=== PATIENT | female | born 1940 | race Caucasian/White ===

== ENCOUNTER 2020-04-24 14:27 | Emergency (ER) | payer MEDICARE ==
[~2020-04-24] VITALS: Ht 170.2 cm; Wt 114.3 kg
--- NOTE | 2020-04-24 14:31 | NUR ---
Emily (daughter in law) [phone] call for information
--- NOTE | 2020-04-24 14:35 | NUR ---
BIB RA FROM HOME,C/O PAIN IN HER BUTTOCKS, S/P GLF. PATIENT ABLE TO MOVE HER LOWER AND UPPER EXTREMITIES. NEEDS ATTENDED.
[2020-04-24] MEDS ORDERED: KETOROLAC TROMETHAMINE 15 MG/ML VIAL ONE (15:10)
[2020-04-24] MEDS ORDERED: ACETAMINOPHEN ES 500 MG TABLET ONE (15:10)
[2020-04-24] MEDS ORDERED: ACETAMINOPHEN 325 MG TABLET PO ONE (15:30)
[2020-04-24] MEDS ORDERED: KETOROLAC TROMETHAMINE INJ 30 MG/ML VIAL IV ONE (15:30)
--- NOTE | 2020-04-24 18:28 | NUR ---
IV removed. Catheter intact and site benign. Pressure and 4x4 applied to site. No bleeding noted. Patient discharged to home in stable condition. Written and verbal after care instructions given. Patient verbalizes understanding of instruction. Picked up by son Cole.
[2020-04-24 18:29] VITALS: BP 120/68
== END 2020-04-24 18:30 | disposition home or self-care (01) ==
LOC: ER 14:33
DX: S30.0XXA Contusion of lower back and pelvis, initial encounter (principal); I10 Essential (primary) hypertension; E11.9 Type 2 diabetes mellitus without complications; W18.39XA Other fall on same level, initial encounter; Y93.89 Activity, other specified; Y92.89 Other specified places as the place of occurrence of the external cause; Y99.8 Other external cause status
CPT/HCPCS: 72190; 96374; 99283; J1885

== ENCOUNTER 2022-04-28 18:45 | Inpatient (IN) | payer OTHER ==
[~2022-04-28] VITALS: Ht 175.3 cm; Wt 77.6 kg
--- NOTE | 2022-04-28 19:57 | NUR ---
BIBRA 860 FROM HOME [place] WITH C/O GENERAL WEAKNESS PAST FEW DAYS 3L O2 AT HOME. PT A/OX3. CONNECTED PT TO POX AND MONITOR. SAFETY MEASURES IN PLACE.
--- NOTE | 2022-04-28 20:20 | NUR ---
DTR IN LAW [place] [phone]
--- NOTE | 2022-04-28 20:28 | NUR ---
BLOOD WORK COLLECTED SENT TO LAB,
[2022-04-28 20:47] LABS: BASOPHILS % (AUTO) 0.2 % (0.0-2.0); EOSINOPHILS % (AUTO) 0.1 % (0.0-6.0); HEMATOCRIT 47 % (33-45); HEMOGLOBIN 15.4 g/dL (11.5-14.8); LYMPHOCYTES % (AUTO) 5.6 % (20.0-44.0); MEAN CORPUSCULAR HGB CONC 33 g/dl (31.0-36.0); MEAN CORPUSCULAR VOLUME 96 fL (82-100); MONOCYTES # (AUTO) 1.2 K/uL (0.1-1.30); MONOCYTES % (AUTO) 7.2 % (2.0-12.0); NEUTROPHILS # (AUTO) 14.8 K/uL (1.8-8.9); NEUTROPHILS % (AUTO) 86.9 % (43.0-81.0); PLATELET COUNT (AUTO) 170 K/uL (150-450); RED BLOOD CELL COUNT(AUTO) 4.95 MIL/uL (4.0-5.2)
[2022-04-28 21:25] LABS: ALANINE AMINOTRANSFERASE 16 U/L (12-78); ALBUMIN 2.6 g/dL (3.4-5.0); ALKALINE PHOSPHATASE 112 U/L (46-116); ASPARTATE AMINOTRANSFERASE 30 U/L (15-37); BILIRUBIN,DIRECT 0.2 mg/dL (0.0-0.2); BILIRUBIN,TOTAL 1.4 mg/dL (0.2-1.0); CALCIUM, SERUM 9.4 mg/dL (8.5-10.1); CARBON DIOXIDE 35 mmol/L (21-32); CHLORIDE 92 mmol/L (98-107); CREATININE 1.9 mg/dL (0.6-1.3); GLUCOSE 140 mg/dL (74-106); POTASSIUM 5.5 mmol/L (3.5-5.1); SODIUM SERUM 134 mmol/L (136-145); UREA NITROGEN, BLOOD 41 mg/dL (7-18)
--- NOTE | 2022-04-28 21:26 | NUR ---
PATIENT AT CT
[2022-04-28] MEDS ORDERED: HYDROCODONE/APAP 5/325MG TABLET PO ONE (21:30)
[2022-04-28] MEDS ORDERED: HYDROCODONE/APAP 5/325MG TABLET ONE (21:32)
--- NOTE | 2022-04-28 21:43 | NUR ---
URINE COLLECTED AND SENT TO LAB
--- NOTE | 2022-04-28 21:45 | NUR ---
COVID ANTIGEN AND MRSA SWAB COLLECTED. PT BELONGINGS LIST DONE
[2022-04-28] MEDS ORDERED: IV NS 0.9% 1,000 ML BAG IV ONE (22:00)
[2022-04-28 22:05] LABS: BILIRUBIN,URINE SMALL (NEGATIVE); COLOR,URINE YELLOW (YELLOW); LEUKOCYTE ESTERASE ,URINE MODERATE (NEGATIVE); NITRITE, URINE POSITIVE (NEGATIVE); PH,URINE 6.5 (5.0-8.0); PROTEIN,URINE 100 mg/dl (NEGATIVE); UGLUCOSE NEGATIVE (NEGATIVE)
--- NOTE | 2022-04-28 22:07 | NUR ---
Tammy berkowitz in [facility] - 04/28/22 at 2210 by [facility] PT TAKEN TO CT VIA KANDICE
--- NOTE | 2022-04-28 22:07 | NUR ---
PT REFUSED TO GET HEAD CT; DR. SWARTZ AWARE
[2022-04-28] MEDS ORDERED: CEFTRIAXONE 1GM BAG (ER ONLY) 50 ML IV ONE (22:15)
[2022-04-28 22:30] LABS: BACTERIA,URINE Many /HPF (None Seen); SQUAMOUS EPITHELIAL CELL,UR Many /HPF (None Seen); WBC,URINE 81-100 /HPF (0-3)
[2022-04-28] MEDS ORDERED: CEFTRIAXONE 1GM BAG (ER ONLY) 1 GM/50 ML PIGGYBACK IV ONE (22:30)
--- NOTE | 2022-04-28 22:59 | NUR ---
NOTIDFIED DTR IN LAW [place] [phone] THAT PT WILL ADMITTED
--- NOTE | 2022-04-28 23:00 | NUR ---
[facility] DTR IN LAW [phone] WILL BRING HOME MED LIST TOMORROW MORNING.
--- NOTE | 2022-04-28 23:21 | NUR ---
BRIAN PINK DNP AT PT'S BEDSIDE
--- NOTE | 2022-04-28 23:44 | NUR ---
REPORT GIVEN TO ISAURO Rosado RN FOR QUAN
[2022-04-28] MEDS: MORPHINE SULFATE INJ 2 MG/ML DISP.SYRIN IV PRN (23:55)
--- NOTE | 2022-04-28 23:55 | NUR ---
PRN PAIN MEDS MORPHINE 2MG ADMINISTERED ORDERED. 04/15 SACRAL PAIN. VSS
[2022-04-29] MEDS ORDERED: HYDROCODONE/APAP 5/325MG TABLET PO PRN
[2022-04-29] MEDS ORDERED: MAG HYDROX/AL HYDROX/SIMETH 30 ML UDC PO PRN
[2022-04-29] MEDS ORDERED: INSULIN REGULAR, HUMAN 100 UNIT/ML 3 ML VIAL SQ PRN
[2022-04-29] MEDS ORDERED: Z GUARD REMEDY 4 OZ OINT TP PRN
[2022-04-29] MEDS ORDERED: DEXTROSE 50%-WATER 50 ML DISP.SYRIN IV PRN
[2022-04-29] MEDS ORDERED: ONDANSETRON HCL/PF 4 MG/2 ML VIAL IVP PRN
[2022-04-29] MEDS ORDERED: TEMAZEPAM 15 MG CAPSULE PO PRN
[2022-04-29] MEDS ORDERED: ACETAMINOPHEN 325 MG TABLET PO PRN
[2022-04-29] MEDS ORDERED: MAGNESIUM HYDROXIDE 30 ML UDC PO PRN
--- NOTE | 2022-04-29 00:06 | NUR ---
PT TRANSFERRED TO 3 VIA HOSPITAL PROTOCOL. VSS. ALL BELONGINGS WITH PT.
[2022-04-29 00:30] VITALS: BP 111/57
--- NOTE | 2022-04-29 00:30 | NUR ---
MS LAW OFFICE ASSISTANT NOTES PATIENT ARRIVED VIA GURNEY FROM ER; AWAKE, ALERT AND ORIENTED X2-3. ABLE TO MAKE NEEDS KNOWN. ON OXYGEN INHALATION @ 3LPM VIA NASAL CANNULA; TOLERATING WELL. NO S/SX OF RESPIRATORY DISTRESS. WITH IV ACCESS ON RIGHT FOREARM 20G; PATENT AND INTACT INFUSING WITH NS 1L REGULATED @ 75ML/HR. VITAL SIGNS TAKEN AND RECORDED FOLLOWS: T-98.2, NC-79, RR-18, BP-111/57, O2 SAT 99%; AFEBRILE. SKIN ASSESSMENT DONE; WARM TO TOUCH. PICTURES TAKEN AND PLACED TO CHART. ORIENTED TO STAFF, ROOM AND UNIT. ALL PERSONAL BELONGINGS CHECKED AND ACCOUNTED FOR. FALL AND SAFETY MEASURES IMPLEMENTED: CALL LIGHT AND TABLE WITHIN EASY REACH, SIDE RAILS UP X2, BED IN LOWEST LOCKED POSITION. WILL CONTINUE TO MONITOR
[2022-04-29] MEDS: IV NS 0.9% 1,000 ML IV PRN ×2 (01:22→15:31)
[2022-04-29] MEDS: MORPHINE SULFATE INJ 2 MG/ML DISP.SYRIN IV PRN (04:07)
--- NOTE | 2022-04-29 04:07 | NUR ---
MS RN NOTE PATIENT C/O SACRAL PAIN 8/; PRN MORPHINE 2MG GIVEN IVP PER MD'S ORDER. WILL CONTINUE TO REASSESS AND MONITOR PT.
--- NOTE | 2022-04-29 06:00 | NUR ---
MS RN NOTE BS CHECKED WITH RESULT OF 122 MG/DL; NO INSULIN COVERAGE GIVEN.
[2022-04-29] MEDS: BLOOD SUGAR DIAGNOSTIC 1 EACH STRIP IN SCH ×4 (06:17→21:21)
--- NOTE | 2022-04-29 07:05 | NUR ---
MS RN CLOSING NOTES PATIENT REMAINS IN BED; AWAKE, A/O X2. ON O2 INHALATION @ 3LPM VIA NASAL CANNULA; TOLERATING WELL. NO S/SX OF RESPIRATORY DISTRESS. NO C/O PAIN OR DISCOMFORT AT THIS TIME. WITH IV ACCESS ON RIGHT FOREARM 20G; PATENT AND INTACT INFUSING WITH NS 1L REGULATED @ 75 ML/HR; FLUSHES WELL. NO S/SX OF INFILTRATION NOTED. ALL NEEDS MET AT THIS TIME. FALL AND SAFETY MEASURES MAINTAINED: BED IN LOWEST LOCKED POSITION, SIDE RAILS UP X2, CALL LIGHT AND TABLE WITHIN REACH. ENDORSED TO MORNING SHIFT FOR CONTINUITY OF CARE
--- NOTE | 2022-04-29 07:20 | NUR ---
MS RN OPENING NOTES RECEIVED PATIENT IN BED RESTING IN BED, RESPONDS TO VERBAL AND PHYSICAL STIMULI. A/O X2. STABLE ON 3L OF O2 VIA NC. NO S/SX OF RESPIRATORY DISTRESS NOTED. NO C/O PAIN OR DISCOMFORT AT THIS TIME. IV ACCESS RIGHT FOREARM G#20 PATENT AND INTACT INFUSING NS @ 75ML/HR. NO S/SX OF INFILTRATION NOTED. SAFETY PRECAUTIONS IN PLACE. WILL CONTINUE TO MONITOR
[2022-04-29 07:29] LABS: BASOPHILS % (AUTO) 0.1 % (0.0-2.0); EOSINOPHILS % (AUTO) 0.3 % (0.0-6.0); HEMATOCRIT 40 % (33-45); HEMOGLOBIN 13.5 g/dL (11.5-14.8); LYMPHOCYTES # (AUTO) 1.2 K/uL (0.8-4.8); LYMPHOCYTES % (AUTO) 9.4 % (20.0-44.0); MEAN CORPUSCULAR HGB CONC 33 g/dl (31.0-36.0); MEAN CORPUSCULAR VOLUME 96 fL (82-100); MONOCYTES # (AUTO) 0.9 K/uL (0.1-1.30); MONOCYTES % (AUTO) 7.5 % (2.0-12.0); NEUTROPHILS # (AUTO) 10.3 K/uL (1.8-8.9); NEUTROPHILS % (AUTO) 82.7 % (43.0-81.0); PLATELET COUNT (AUTO) 144 K/uL (150-450); RED BLOOD CELL COUNT(AUTO) 4.21 MIL/uL (4.0-5.2); WHITE BLOOD COUNT (AUTO) 12.5 K/uL (4.3-11.0)
[2022-04-29 08:00] VITALS: BP 110/46
[2022-04-29] MEDS: PANTOPRAZOLE 40 MG TABLET.DR PO SCH (08:12)
[2022-04-29 08:36] LABS: CALCIUM, SERUM 8.5 mg/dL (8.5-10.1); CARBON DIOXIDE 33 mmol/L (21-32); CHLORIDE 97 mmol/L (98-107); CREATININE 1.7 mg/dL (0.6-1.3); GLUCOSE 114 mg/dL (74-106); MAGNESIUM 1.8 mg/dL (1.8-2.4); POTASSIUM 4.1 mmol/L (3.5-5.1); SODIUM SERUM 137 mmol/L (136-145); UREA NITROGEN, BLOOD 42 mg/dL (7-18)
[2022-04-29 08:53] LABS: THYROID STIMULATING HORMONE 1.725 uIU/mL (0.358-3.74)
[2022-04-29] MEDS ORDERED: FLUT12AE7 INH (09:42)
[2022-04-29] MEDS ORDERED: LEVO88TA5 PO (09:42)
[2022-04-29] MEDS ORDERED: POTA10TA10 PO (09:42)
[2022-04-29] MEDS ORDERED: MEMA5TAB42 PO (09:42)
[2022-04-29] MEDS ORDERED: BUME0.5T5 PO (09:42)
[2022-04-29] MEDS ORDERED: METF-881 PO (09:42)
[2022-04-29] MEDS ORDERED: SIMV-49 PO (09:42)
[2022-04-29] MEDS ORDERED: FLUT1BLS13 INH (09:42)
--- NOTE | 2022-04-29 09:43 | NUR ---
[phone].
[2022-04-29 16:02] VITALS: BP 115/55
--- NOTE | 2022-04-29 19:25 | NUR ---
RN OPENING NOTE PATIENT IN BED, EYES CLOSED. EASILY AWAKENED. A/O X 3 AT THIS TIME. PATIENT ON 3LPM AT THIS TIME AT 95% O2 SATURATION. PER JAN MALLOY, SHE SPOKE WITH THE DTR AND STATES SHE ALSO HAS 3LPM CONTINUOUS AT HOME BUT WOULD LIKE FOR PATIENT TO BE WEANED OFF IF SHE DOESN'T NEED IT. PATIENT HAS A RFA 20 G WITH NS AT 75 ML/HR ONGOING. SAFETY MEASURES IN PLACE: BED LOCKED AND IN LOWEST POSITION, CALL LIGHT WITHIN REACH, SIDE RAILS UP. WILL MONITOR PATIENT CLOSELY. Addendum: 04/29/22 at 2138 by BECKY SHETTY RN INCORRECT ORIENTATION- A/O X 2
--- NOTE | 2022-04-29 19:27 | NUR ---
RN NOTES PATIENT STABLE IN BED. NO COMPLAINTS AT THIS TIME. SAFETY PRECAUTIONS IN PLACE. ENDORSED REPORT TO THE GANTRY CRANE OPERATOR NURSE FOR QUAN
[2022-04-29 20:00] VITALS: BP_SYST 134; BP_DIAS 70; BP_DIAS 71
[2022-04-29] MEDS: CEFTRIAXONE 1 G in IV D5W 50 ML IV SCH (21:21)
--- NOTE | 2022-04-29 21:21 | NUR ---
RN NOTE PATIENT'S BS 86 MG/DL, NO COVERAGE GIVEN, PATIENT GIVEN ORANGE JUICE AND FED SOME PUDDING. WILL MONITOR FOR HYPO/HYPERGLYCEMIA.
[2022-04-30] MEDS: MORPHINE SULFATE INJ 2 MG/ML DISP.SYRIN IV PRN (00:43)
--- NOTE | 2022-04-30 00:43 | NUR ---
RN NOTE PATIENT SCREAMING AND CRYING "I HURT, MY LEGS HURT". MORPHINE GIVEN FOR SEVERE PAIN. WILL REASSESS AT A LATER TIME.
[2022-04-30] MEDS: IV NS 0.9% 1,000 ML IV PRN ×2 (04:11→22:17)
--- NOTE | 2022-04-30 06:28 | NUR ---
RN NOTE PATIENT'S BS 80 MG/DL. NO INSULIN COVERAGE GIVEN. PATIENT GIVEN SNACKS TO PREVENT BS FROM DROPPING FURTHER. WILL ASSESS FOR HYPO/HYPERGLYCEMIA.
[2022-04-30] MEDS: BLOOD SUGAR DIAGNOSTIC 1 EACH STRIP IN SCH ×4 (06:34→22:17)
--- NOTE | 2022-04-30 07:03 | NUR ---
RN CLOSING NOTE PATIENT IN BED, EYES CLOSED. EASILY AWAKENED. PATIENT IS CURRENTLY A/O X 1-2, NEEDS FREQUENT REORIENTATION. PATIENT NOTED TO HAVE FREQUENT URINATION/URGE TO URINATE. PENDING URINE CX. PATIENT IS CURRENTLY ON 3LPM, NO SOB NOTED. TOLERATING WELL. PATIENT NOT IN ANY APPARENT DISTRESS. SAFETY MEASURES IMPLEMENTED. ALL NEEDS MET AND ATTENDED. ALL ORDERS CARRIED OUT. WILL ENDORSE TO DAY SHIFT NURSE FOR QUAN.
[2022-04-30 08:00] VITALS: BP 112/47
--- NOTE | 2022-04-30 09:29 | NUR ---
WOUND CARE CONSULT: PT PRESENTS IMMOBILE WITH SACRAL DEEP TISSUE INJURY AND REDNESS/OPEN SKIN TO BILATERAL BREASTFOLDS, PRESENT ON ADMISSION. RECOMMENDATIONS MADE FOR SKIN PROTECTION AND WOUND CARE. DISCUSSED WITH NURSING STAFF. PT IS INCONTINENT. FIRST STEP LOW AIRLOSS MATTRESS IS ON ORDER. MD IN AGREEMENT WITH PLAN OF CARE. Addendum: 04/30/22 at 0930 by BRITTANY GRANADOS WNDNU Amended: Links added.
[2022-04-30] MEDS: PANTOPRAZOLE 40 MG TABLET.DR PO SCH (10:10)
[2022-04-30 11:50] LABS: BASOPHILS % (AUTO) 0.3 % (0.0-2.0); EOSINOPHILS % (AUTO) 3.9 % (0.0-6.0); HEMATOCRIT 41 % (33-45); HEMOGLOBIN 12.8 g/dL (11.5-14.8); LYMPHOCYTES # (AUTO) 1.2 K/uL (0.8-4.8); LYMPHOCYTES % (AUTO) 13.7 % (20.0-44.0); MEAN CORPUSCULAR HGB CONC 32 g/dl (31.0-36.0); MEAN CORPUSCULAR VOLUME 98 fL (82-100); MONOCYTES # (AUTO) 0.9 K/uL (0.1-1.30); NEUTROPHILS # (AUTO) 6.3 K/uL (1.8-8.9); NEUTROPHILS % (AUTO) 72.1 % (43.0-81.0); PLATELET COUNT (AUTO) 152 K/uL (150-450); RED BLOOD CELL COUNT(AUTO) 4.14 MIL/uL (4.0-5.2); WHITE BLOOD COUNT (AUTO) 8.7 K/uL (4.3-11.0)
[2022-04-30 12:04] LABS: MAGNESIUM 1.6 mg/dL (1.8-2.4); PHOSPHORUS 2.8 mg/dL (2.5-4.9); POTASSIUM 3.5 mmol/L (3.5-5.1)
[2022-04-30 16:00] VITALS: BP 123/56
--- NOTE | 2022-04-30 19:17 | NUR ---
RN CLOSING NOTE PATIENT A/O X2. REMAINS CONFUSED, HOWEVER REDIRECT-ABLE. RECEIVED PATIENT AT BEGINNING OF SHIFT BEDRIDDEN AND SLEEPING. PATIENT HAD NO S/SX OF ACUTE DISTRESS OR PAIN. IV ACCESS TO RFA REMAINS INTACT AND PATENT. REMAINS ON OXYGEN VIA NC @ 3L. TOLERATED ALL MEALS AND MEDICATIONS WELL. AWAITING URINE CULTURE RESULTS. SAFETY MEASURES INTACT WITH BED LOW AND LOCKED. SIDERAIL UP, CALL LIGHT WITHIN REACH. WILL CONTINUE TO MONITOR.
--- NOTE | 2022-04-30 19:20 | NUR ---
MS RN OPENING NOTE PATIENT AWAKE IN BED, ALERT/ORIENTED X 1-2, CONFUSED. PT STABLE ON 3 LPM OF OXYGEN VIA NASAL CANNULA, NO S/S OF DISTRESS OR SOB NOTED, BREATHING EVEN AND UNLABORED. IV ACCESS ON RFA #20G INTACT AND INFUSING NS @ 75 ML/HR. PATIENT C/O RIGHT LEG PAIN, WILL ADMINISTER PAIN MEDICATION. SAFETY MEASURES IN PLACE: CALL LIGHT WITHIN REACH, SIDE RAILS UP X 3, BED LOCKED IN LOWEST POSITION, BED ALARM ON. WILL CONTINUE TO MONITOR PATIENT
[2022-04-30 20:00] VITALS: BP 122/59
--- NOTE | 2022-04-30 20:15 | NUR ---
MS RN NOTE LAB CALLED FOR POSITIVE MRSA IN [place]. ON MD ON FLOOR, NOTIFIED WITH ORDER FOR BACTROBAN FOR [place]. PATIENT ALSO CONFUSED, CONSTANTLY YELLING, ORDER FOR SEROQUEL 12.5 MG BID
[2022-04-30] MEDS: MUPIROCIN OINT 2% 22 GM TUBE TP SCH (20:50)
[2022-04-30] MEDS: QUETIAPINE FUMARATE 25 MG TABLET PO SCH (20:50)
[2022-04-30] MEDS: CEFTRIAXONE 1 G in IV D5W 50 ML IV SCH (22:17)
--- NOTE | 2022-05-01 07:04 | NUR ---
MS RN CLOSING NOTE PATIENT SLEEPING IN BED, ALERT/ORIENTED X 1-2, CONFUSED, NEEDS FREQUENT REORIENTATION. PT STABLE ON 3 LPM OF OXYGEN VIA NASAL CANNULA, NO S/S OF DISTRESS OR SOB NOTED, BREATHING EVEN AND UNLABORED. IV ACCESS ON RFA #20G INTACT AND INFUSING NS @ 75 ML/HR. MEDICATIONS GIVEN ORDERED, PT NEEDS MET THROUGHOUT SHIFT. SAFETY MEASURES IN PLACE: CALL LIGHT WITHIN REACH, SIDE RAILS UP X 3, BED LOCKED IN LOWEST POSITION, BED ALARM ON. WILL ENDORSE TO DAYSHIFT NURSE FOR CONTINUITY OF CARE
[2022-05-01 07:07] LABS: BASOPHILS % (AUTO) 0.5 % (0.0-2.0); EOSINOPHILS % (AUTO) 4.1 % (0.0-6.0); HEMATOCRIT 39 % (33-45); HEMOGLOBIN 12.5 g/dL (11.5-14.8); LYMPHOCYTES # (AUTO) 1.6 K/uL (0.8-4.8); LYMPHOCYTES % (AUTO) 21.7 % (20.0-44.0); MEAN CORPUSCULAR HGB CONC 32 g/dl (31.0-36.0); MEAN CORPUSCULAR VOLUME 97 fL (82-100); MONOCYTES % (AUTO) 12.7 % (2.0-12.0); NEUTROPHILS # (AUTO) 4.6 K/uL (1.8-8.9); PLATELET COUNT (AUTO) 162 K/uL (150-450); RED BLOOD CELL COUNT(AUTO) 3.98 MIL/uL (4.0-5.2); WHITE BLOOD COUNT (AUTO) 7.6 K/uL (4.3-11.0)
[2022-05-01] MEDS: BLOOD SUGAR DIAGNOSTIC 1 EACH STRIP IN SCH ×4 (07:08→22:25)
[2022-05-01 07:31] LABS: CALCIUM, SERUM 7.8 mg/dL (8.5-10.1); MAGNESIUM 1.5 mg/dL (1.8-2.4); PHOSPHORUS 2.7 mg/dL (2.5-4.9); POTASSIUM 3.9 mmol/L (3.5-5.1)
[2022-05-01 08:00] VITALS: BP 121/57
[2022-05-01] MEDS: PANTOPRAZOLE 40 MG TABLET.DR PO SCH (08:19)
[2022-05-01] MEDS: QUETIAPINE FUMARATE 25 MG TABLET PO SCH ×2 (08:19→17:38)
[2022-05-01] MEDS: MUPIROCIN OINT 2% 22 GM TUBE TP SCH ×2 (08:28→22:13)
[2022-05-01] MEDS ORDERED: ENOXAPARIN SODIUM 40 MG/0.4 ML DISP.SYRIN SQ SCH (09:00)
[2022-05-01] MEDS ORDERED: MAGNESIUM OXIDE 400 MG TABLET PO ONE (10:00)
[2022-05-01] MEDS ORDERED: MAGN400O6 PO (10:25)
[2022-05-01] MEDS ORDERED: Z Guard Remedy TP (10:25)
[2022-05-01] MEDS ORDERED: CEFT1FRO2 IV (10:25)
[2022-05-01] MEDS ORDERED: MUPI22OI7 TP (10:25)
[2022-05-01] MEDS ORDERED: INSU100V28 SQ (10:25)
[2022-05-01] MEDS ORDERED: PANT40TA49 PO (10:25)
[2022-05-01] MEDS ORDERED: Quetiapine Fumarate PO (10:25)
[2022-05-01] MEDS ORDERED: Blood Sugar Diagnostic IN (10:25)
--- NOTE | 2022-05-01 19:09 | NUR ---
RN CLOSING NOTE PATIENT REMAINS A/O X 1-2. VERY CONFUSED AND UNABLE TO PROPERLY VERBALIZE NEEDS. AND ABLE TO VERBALIZE ALL NEEDS. CONTINUES TO BE BEDRIDDEN. RECEIVED LYING IN BED, AWAKE. TOLERATED ALL MEALS AND MEDICATIONS WELL ON SHIFT. IV ACCESS TO RFA REMAINS INTACT AND PATENT. BLOOD SUGAR LEVELS STABLE ON SHIFT @ 99 AND 79. NO INSULIN COVERAGE NEEDED. [facility] PICKUP SCHEDULED FOR 1829. PATIENT CURRENTLY STILL HERE. REPORT GIVEN TO ADOLPH AT RECEIVING FACILITY. FAMILY ALSO AWARE. WILL ENDORSE TO ONCOMING NURSE. BEING DISCHARGED WITH IV ACCESS IV ANTIBIOTICS WILL CONTINUE. NO SOB OR RESPIRATORY DISTRESS OBSERVED OR REPORTED. REMAINS ON OXYGEN THERAPY, 2L VIA NASAL CANULA. SAFETY MEASURES REMAIN IN PLACE WITH BED IN LOWEST POSITION AND LOCKED. SIDERAIL UP X2. CALL LIGHT WITHIN REACH.
--- NOTE | 2022-05-01 19:35 | NUR ---
MS RN OPENING NOTES RECEIVED PATIENT IN BED, AWAKE, ALERT AND ORIENTED X1-2, CONFUSED. ON OXYGEN INHALATION @ 3LPM VIA NASAL CANNULA; TOLERATING WELL. BREATHING EVEN AND UNLABORED. NO S/SX OF RESPIRATORY DISTRESS. WITH IV ACCESS ON RIGHT FOREARM 20g; PATENT, INTACT AND SALINE LOCKED. NEEDS ANTICIPATED. FALL AND SAFETY MEASURES IMPLEMENTED: CALL LIGHT AND TABLE WITHIN REACH, SIDE RAILS UP X 3, BED IN LOWEST LOCKED POSITION. WILL CONTINUE TO MONITOR
[2022-05-01 20:00] VITALS: BP 110/60
[2022-05-01] MEDS: CEFTRIAXONE 1 G in IV D5W 50 ML IV SCH (22:14)
--- NOTE | 2022-05-01 22:19 | NUR ---
RN NOTES BLOOD SUGAR CHECKED - 108 MG/DL; NO INSULIN COVERAGE GIVEN.
--- NOTE | 2022-05-02 00:38 | NUR ---
MS FACILITY MAINTENANCE MECHANIC NOTES DISCHARGED PATIENT IN STABLE CONDITION WITH STABLE VITAL SIGNS. ON O2 INHALATION @ 3LPM VIA NASAL CANNULA; TOLERATING WELL. NO C/O PAIN OR DISCOMFORT AT THIS TIME. NOT IN ANY FORM OF RESPIRATORY DISTRESS. DISCHARGE INSTRUCTIONS GIVEN TO PATIENT. ALL THE BELONGINGS ACCOUNTED FOR. PATIENT WAS PICKED UP BY EMS TEAM FROM [facility] AND WILL BE GOING TO [facility] [place]. CHARGE NURSE AND MD ARE AWARE OF DISCHARGE.
== END 2022-05-02 00:40 | DRG 640 ==
LOC: ER 19:05 → MED 23:48
PROVIDERS: ADMIT Nurse Practitioner Acute Care; ATTEND Nurse Practitioner Acute Care
DX: E86.0 Dehydration (principal); N17.0 Acute kidney failure with tubular necrosis; N39.0 Urinary tract infection, site not specified; J90 Pleural effusion, not elsewhere classified; E87.1 Hypo-osmolality and hyponatremia; E87.3 Alkalosis; Z20.822 Contact with and (suspected) exposure to COVID-19; N18.9 Chronic kidney disease, unspecified; I12.9 Hypertensive chronic kidney disease with stage 1 through stage 4 chronic kidney disease, or unspecified chronic kidney disease; E11.22 Type 2 diabetes mellitus with diabetic chronic kidney disease; B96.89 Other specified bacterial agents as the cause of diseases classified elsewhere; E87.5 Hyperkalemia; J43.9 Emphysema, unspecified; Z99.81 Dependence on supplemental oxygen; Z87.891 Personal history of nicotine dependence; Z96.641 Presence of right artificial hip joint; M19.90 Unspecified osteoarthritis, unspecified site; Z98.890 Other specified postprocedural states; W01.0XXA Fall on same level from slipping, tripping and stumbling without subsequent striking against object, initial encounter; Y92.009 Unspecified place in unspecified non-institutional (private) residence as the place of occurrence of the external cause; M16.12 Unilateral primary osteoarthritis, left hip; D75.1 Secondary polycythemia; E88.9 Metabolic disorder, unspecified; E86.1 Hypovolemia; E66.9 Obesity, unspecified; Z68.25 Body mass index [BMI] 25.0-25.9, adult
CPT/HCPCS: 36415; 71045-TC; 76770-TC; 80048-TC; 80076-TC; 81001; 82962-TC; 83735-TC; 84100-TC; 84443-TC; 84484-TC; 85025-TC; 87081-TC; 87086-TC; 87186-TC; 94799-TC; 97112-TC; 97530-TC; C9803; G0378; J0696; J1650; J1815; J2270; J7030; J7060